=== PATIENT | female | born 1980 | race Caucasian/White ===

== ENCOUNTER → 2019-12-29 11:45 | Outpatient (BNVA) | payer MEDICARE, MEDICAID, SELFPAY | PROVIDERS: Family Provider Nurse Practitioner Family; PCP Nurse Practitioner Family; Visit Provider Family Medicine | DX: E61.1 Iron deficiency (principal); Z78.0 Asymptomatic menopausal state; M25.50 Pain in unspecified joint; R06.02 Shortness of breath; E55.9 Vitamin D deficiency, unspecified; E87.5 Hyperkalemia; J44.9 Chronic obstructive pulmonary disease, unspecified; R53.83 Other fatigue; Z13.6 Encounter for screening for cardiovascular disorders; Z13.220 Encounter for screening for lipoid disorders; I10 Essential (primary) hypertension | CPT/HCPCS: 80053; 80061; 82652; 83735; 85025 ==

== ENCOUNTER 2020-04-20 06:00 | Outpatient (RCR) | payer MEDICARE, MEDICAID, SELFPAY | END 2020-04-23 23:59 | disposition home or self-care (01) | LOC: MPT 06:00 | PROVIDERS: PCP Nurse Practitioner Family; Referring Provider Family Medicine; Visit Provider Family Medicine | DX: G89.29 Other chronic pain (principal); M53.3 Sacrococcygeal disorders, not elsewhere classified | CPT/HCPCS: 97110; 97161; 97530 ==

== ENCOUNTER → 2020-07-09 14:12 | Outpatient (BNVA) | payer MEDICARE, MEDICAID, SELFPAY | PROVIDERS: PCP Nurse Practitioner Family; Visit Provider Emergency Medicine | DX: J45.909 Unspecified asthma, uncomplicated (principal); R68.89 Other general symptoms and signs; R06.02 Shortness of breath; Z11.59 Encounter for screening for other viral diseases; J02.9 Acute pharyngitis, unspecified | CPT/HCPCS: 87071; 87400; 87635; 87880 ==

== ENCOUNTER → 2020-10-13 15:18 | Outpatient (BNVA) | payer MEDICARE, MEDICAID, SELFPAY | PROVIDERS: PCP Nurse Practitioner Family; Visit Provider Emergency Medicine | DX: Z20.828 Contact with and (suspected) exposure to other viral communicable diseases (principal); R11.0 Nausea; R68.89 Other general symptoms and signs | CPT/HCPCS: 87635 ==